=== PATIENT | female | born 1980 | race Caucasian/White ===

== ENCOUNTER 2017-01-28 11:25 | Day surgery (SDC) | payer OTHER, MEDICARE ==
[2017-01-22 10:34] VITALS: BMI 20.4
[~2017-01-28 11:25] MED LIST: CLINDAMYCIN 900 MG in DEXTROSE 5% IN WATER 50 ML IVPB ONE; DEXAMETHASONE SOD PHOSPHATE 10 MG/ML 1 ML VIAL IV ONE; HYDROmorphone 1 MG/ML 1 ML SYRINGE IVP PRN; LACTATED RINGERS 1,000 ML IV SCH; LIDOCAINE 1% 20 ML VIAL (10MG/ML) FOR IV START INTRADERMA PRN; ONDANSETRON 4 MG/2 ML VIAL IVP ONE; SCOPOLAMINE 1.5MG/72HR PATCH TRANSDERM ONE
[2017-01-28 11:50] VITALS: TEMP 97.6
[2017-01-28 12:25] LABS: Glucose,Whole Blood 140 mg/dL (75-99)
[2017-01-28] MEDS ORDERED: SUCCINYLCHOLINE CHLORIDE 100 MG/5 ML SYR IV ONE (13:24)
[2017-01-28] MEDS ORDERED: fentaNYL (PF) 50 MCG/ML 2 ML AMP ONE (13:24)
[2017-01-28] MEDS ORDERED: LIDOCAINE 1% INJ 10MG/ML (20 ML MDV) ONE (13:24)
[2017-01-28] MEDS ORDERED: PROPOFOL 10 MG/ML 20 ML VIAL IV ONE (13:24)
[2017-01-28] MEDS ORDERED: MIDAZOLAM 2 MG/2 ML VIAL ONE (13:24)
[2017-01-28] MEDS ORDERED: LIDOCAINE 1%-EPI 1:100,000 20 ML VIAL SQ ONE ×2 (13:48)
[2017-01-28] MEDS ORDERED: GELATIN SPONGE,ABSORB (SMALL) 1 EACH SPONGE TOPICAL ONE (14:55)
[2017-01-28 16:00] VITALS: RESP 16
[2017-01-28 16:38] LABS: Glucose,Whole Blood 96 mg/dL (75-99)
[2017-01-28 16:44] VITALS: PULSE 89
[2017-01-28 17:11] VITALS: BP 141/90
--- NOTE | 2017-01-29 09:23 | OP ---
DATE OF PROCEDURE: 01/28/2017 PREOPERATIVE DIAGNOSES: 1. Carious teeth. 2. Abscessed teeth. POSTOPERATIVE DIAGNOSES: 1. Carious teeth. 2. Abscessed teeth. PROCEDURE: Surgical extraction of teeth #2, 3, 4, 5, 13, 14, 15, 16, 18, 19, 20 , 21, 22, 26, 27, 28, 29, 30 and 31. SURGEON: CAROLE GAMEZ DDS ANESTHESIA: General via right nasal endotracheal intubation. ESTIMATED BLOOD LOSS: Approximately 100 mL. FLUIDS: Crystalloid. DRAINS: None. COMPLICATIONS: None. SPECIMENS: None. INDICATIONS FOR PROCEDURE: Patient is a 36-year-old female who was referred for the evaluation of severely carious teeth of which she has experienced pain and intermittent swelling. Patient was examined and will undergo removal of multiple carious and abscessed teeth. The risks, benefits and alternatives of the procedure were reviewed with the guardian at length and all of her questions answered to her satisfaction. Patient was taken to the Operating Room, placed on the operating table in the supine position. Next, she was induced via the IV route, was intubated through the right nares. A general mask anesthesia was then maintained throughout the operative course. The patient was then prepped and draped in the usual manner for this procedure. The surgeon approached the operative field and a throat pack was placed and notifying both nursing and anesthesia and 2% Lidocaine with 1/100,000 parts epinephrine was used to provide local infiltration and the right and left inferior nerve block. Next, the surgeon approached the operative field and his attention was directed to the lower right quadrant where teeth #26 through 31 were surgically extracted utilizing elevator and forceps technique. The wound was irrigated thoroughly and 3 chromic gut sutures were placed to reapproximate the flap. Attention was then directed to the 3 other quadrants and using a similar technique, teeth #2, 3, 4, 5, 13, 14, 15, 16, 18, 19, 20, 21, and 22 were extracted. The wounds were irrigated thoroughly and were filled with gel foam prior to closure; 3-0 chromic gut was used. The patient tolerated the procedure well without complications. The throat pack was removed, notifying both nursing and anesthesia. Patient was then taken to the postoperative care unit, breathing spontaneously and hemodynamically stable. [facility]ITAL[facility]honny
== END 2017-01-28 17:13 | disposition home or self-care (01) ==
LOC: OR 11:25
PROVIDERS: ATTEND Dentist Oral and Maxillofacial Surgery
DX: K02.9 Dental caries, unspecified (principal); K04.7 Periapical abscess without sinus; E03.9 Hypothyroidism, unspecified; E78.2 Mixed hyperlipidemia; G47.00 Insomnia, unspecified; E55.9 Vitamin D deficiency, unspecified; Q85.1 Tuberous sclerosis; G40.909 Epilepsy, unspecified, not intractable, without status epilepticus; L21.9 Seborrheic dermatitis, unspecified; E11.65 Type 2 diabetes mellitus with hyperglycemia; R62.50 Unspecified lack of expected normal physiological development in childhood; Z79.4 Long term (current) use of insulin; Z79.899 Other long term (current) drug therapy; Z88.1 Allergy status to other antibiotic agents; Z88.8 Allergy status to other drugs, medicaments and biological substances
CPT/HCPCS: 81025; 84703; 41899; J2250; J2405; J2001; J3010; J0330; J2704

== ENCOUNTER 2020-06-24 13:50 | Emergency (ER) | payer OTHER, MEDICARE ==
[2020-06-24 13:56] VITALS: TEMP 98.8
[2020-06-24] MEDS ORDERED: SODIUM CHLORIDE 0.9% 1,000 ML IV ONE (14:03)
[2020-06-24 14:32] LABS: HCT 40.2 % (34.0-46.0); HGB 13.5 gm/dL (11.4-16.0); MCHC 33.5 g/dL (31.0-37.0); MCV 92.3 fL (80.0-100.0); Mean Platelet Volume 7.5; Platelet Count 292 k/uL (150-450); RBC 4.35 m/uL (3.80-5.40); RDW 13.6 % (11.5-15.5)
[2020-06-24 14:39] LABS: ALT 300 U/L (4-34); AST 231 U/L (14-36); African American GFR (CKD) >90 (>60 ml/min/1.73 sqM); Albumin 3.8 g/dL (3.5-5.0); Alkaline Phosphatase 120 U/L (38-126); Anion Gap 10 mmol/L; Blood Urea Nitrogen 10 mg/dL (7-17); C Reactive Protein 63.3 mg/L (<10.0); Calcium 9.2 mg/dL (8.4-10.2); Carbon Dioxide 26 mmol/L (22-30); Chloride 110 mmol/L (98-107); Glucose 144 mg/dL (74-99); Non-African American GFR(CKD) >90 (>60 ml/min/1.73 sqM); Potassium 4.3 mmol/L (3.5-5.1); Sodium 146 mmol/L (137-145); Total Bilirubin 0.4 mg/dL (0.2-1.3); Total Protein 7.3 g/dL (6.3-8.2)
--- NOTE | 2020-06-24 14:46 | XR ---
EXAMINATION TYPE: XR chest 2V DATE OF EXAM: 06/24/2020 COMPARISON: 01/26/2015 HISTORY: Cough and fever TECHNIQUE: Single view FINDINGS: There is slight elevated right diaphragm.. There are no hilar masses. Heart size is normal. There is some airspace infiltrate in both lower lobes. There is no obvious heart failure. Bony thora x is intact. IMPRESSION: Bilateral lower lobe pulmonary airspace infiltrates and small pleural effusions this appe ars slightly improved compared to old exam. No heart failure.
--- NOTE | 2020-06-24 14:49 | ED ---
General Adult HPI - General Chief complaint: Upper Respiratory Infection Stated complaint: Cough,loss of appetite Time Seen by Provider: 06/24/20 13:56 Source: family, RN notes reviewed Mode of arrival: ambulatory Limitations: no limitations - History of Present Illness Initial comments: 40-year-old female presents emergency Department with mother who is caregiver with chief complaint of possible covid. Mother states that she was positive herself and that there is concerned as she developed symptoms 9 days ago. Patient was placed on antibiotics and steroids. Mom states that her blood sugar has been elevated in the 300s secondary to being on steroids. Mom states that she has decreased oral intake recently that she has not felt well. Mom states that she is nonverbal, developmentally delayed with a history of diabetes. Patient had no vomiting no diarrhea. No reported recent fever. - Related Data Home Medications Medication Instructions Recorded Confirmed Atorvastatin [Lipitor] 80 mg PO 1600 02/23/14 01/28/17 Divalproex [Depakote] 500 mg PO BID 02/23/14 01/28/17 Insulin Glargine [Lantus] 0 unit SQ 2100 02/23/14 01/28/17 levETIRAcetam [Keppra] 1,000 mg PO BID 02/23/14 01/22/17 Calcium Carbonate [Calcium] 600 mg PO DAILY 01/22/17 01/22/17 Cholecalciferol [Vitamin D3] 1,000 unit PO DAILY 01/22/17 01/22/17 Divalproex [Depakote] 250 mg PO QAM 01/22/17 01/22/17 Lacosamide [Vimpat] 100 mg PO BID 01/22/17 01/22/17 Levothyroxine Sodium [Synthroid] 88 mcg PO DAILY 01/22/17 01/28/17 traZODone HCL [Desyrel] 150 mg PO HS 01/22/17 01/28/17 Allergies Allergy/AdvReac Type Severity Reaction Status Date / Time amoxicillin [Amoxicillin] Allergy Severe Swelling, Verified 06/24/20 13:56 hives antihistamines Allergy Severe seizures Uncoded 06/24/20 13:56 Review of Systems ROS Statement: Those systems with pertinent positive or pertinent negative responses have been documented in the HPI. ROS Other: All systems not noted in ROS Statement are negative. Past Medical History Past Medical History: Diabetes Mellitus, Hyperlipidemia, Seizure Disorder, Skin Disorder, Thyroid Disorder Additional Past Medical History / Comment(s): tuberous sclerosis, severe seizure disorder-last one 1 yr ago, non verbal, incontinent of stool and urine (depends), hx kidney stone, psoriasis, History of Any Multi-Drug Resistant Organisms: None Reported Additional Past Surgical History / Comment(s): rt cataract, lithotripsy Past Anesthesia/Blood Transfusion Reactions: No Reported Reaction Past Psychological History: No Psychological Hx Reported Past Alcohol Use History: None Reported Past Drug Use History: None Reported - Past Family History Mother Family Medical History: No Reported History General Exam Limitations: no limitations General appearance: alert, in no apparent distress Head exam: Present: atraumatic, normocephalic, normal inspection Eye exam: Present: normal appearance, PERRL, EOMI. Absent: scleral icterus, conjunctival injection, periorbital swelling ENT exam: Present: normal exam, normal oropharynx, mucous membranes moist Neck exam: Present: normal inspection. Absent: tenderness, meningismus, lymphadenopathy Respiratory exam: Present: normal lung sounds bilaterally. Absent: respiratory distress, wheezes, rales, rhonchi, stridor Cardiovascular Exam: Present: normal rhythm, tachycardia, normal heart sounds. Absent: systolic murmur, diastolic murmur, rubs, gallop, clicks GI/Abdominal exam: Present: soft, normal bowel sounds. Absent: distended, ten derness, guarding, rebound, rigid Course Vital Signs 06/24/20 13:52 Temperature 98.8 F Pulse Rate 101 H Respiratory 22 Rate Blood Pressure 96/58 O2 Sat by Pulse 96 Oximetry Medical Decision Making - Medical Decision Making X-ray reviewed does show evidence of infiltrates, patient has no desaturation. Patient is in no respiratory distress. Patient does have mild labwork abnorm ality's rated to Covid, mild dehydration. Patient was given minimal fluids patient is very stable for discharged. In the room was updated on results and return parameters. Patient feels comfortable with discharge. - Lab Data Result diagrams: 06/24/20 14:15 06/24/20 14:15 Lab Results 06/24/20 06/24/20 06/24/20 Range/Units 14:15 14:15 14:15 WBC 5.8 (3.8-10.6) k/uL RBC 4.35 (3.80-5.40) m/uL Hgb 13.5 (11.4-16.0) gm/dL Hct 40.2 (34.0-46.0) % MCV 92.3 (80.0-100.0) fL MCH 31.0 (25.0-35.0) pg MCHC 33.5 (31.0-37.0) g/dL RDW 13.6 (11.5-15.5) % Plt Count 292 (150-450) k/uL MPV 7.5 Neutrophils % (Manual) 49 % Band Neuts % (Manual) 4 % Lymphocytes % (Manual) 39 % Monocytes % (Manual) 3 % Metamyelocytes % 4 % Myelocytes % 3 % Neutrophils # (Manual) 3.00 (1.3-7.7) k/uL Lymphocytes # (Manual) 2.26 (1.0-4.8) k/uL Monocytes # (Manual) 0.17 (0-1.0) k/uL Metamyelocytes # (Man) 0.23 H (0) k/uL Myelocytes # (Manual) 0.17 H (0) k/uL Nucleated RBCs 1 H (0-0) /100 WBC Manual Slide Review Performed Sodium 146 H (137-145) mmol/L Potassium 4.3 (3.5-5.1) mmol/L Chloride 110 H (98-107) mmol/L Carbon Dioxide 26 (22-30) mmol/L Anion Gap 10 mmol/L BUN 10 (7-17) mg/dL Creatinine 0.40 L (0.52-1.04) mg/dL Est GFR (CKD-EPI)AfAm >90 (>60 ml/min/1.73 sqM) Est GFR (CKD-EPI)NonAf >90 (>60 ml/min/1.73 sqM) Glucose 144 H (74-99) mg/dL Plasma Lactic Acid Law 2.1 H* (0.7-2.0) mmol/L Calcium 9.2 (8.4-10.2) mg/dL Total Bilirubin 0.4 (0.2-1.3) mg/dL AST 231 H (14-36) U/L ALT 300 H (4-34) U/L Alkaline Phosphatase 120 (38-126) U/L C-Reactive Protein 63.3 H (<10.0) mg/L Total Protein 7.3 (6.3-8.2) g/dL Albumin 3.8 (3.5-5.0) g/dL Urine Color Urine Appearance (Clear) Urine pH (5.0-8.0) Ur Specific [place] (1.001-1.035) Urine Protein (Negative) Urine Glucose (UA) (Negative) Urine Ketones (Negative) Urine Blood (Negative) Urine Nitrite (Negative) Urine Bilirubin (Negative) Urine Urobilinogen (<2.0) mg/dL Ur Leukocyte Esterase (Negative) Urine RBC (0-5) /hpf Urine WBC (0-5) /hpf Ur Squamous Epith Cells (0-4) /hpf Urine Mucus (None) /hpf Acetone, Qual Negative (Negative) Coronavirus (PCR) (Not Detectd) 06/24/20 06/24/20 Range/Units 14:15 15:08 WBC (3.8-10.6) k/uL RBC (3.80-5.40) m/uL Hgb (11.4-16.0) gm/dL Hct (34.0-46.0) % MCV (80.0-100.0) fL MCH (25.0-35.0) pg MCHC (31.0-37.0) g/dL RDW (11.5-15.5) % Plt Count (150-450) k/uL MPV Neutrophils % (Manual) % Band Neuts % (Manual) % Lymphocytes % (Manual) % Monocytes % (Manual) % Metamyelocytes % % Myelocytes % % Neutrophils # (Manual) (1.3-7.7) k/uL Lymphocytes # (Manual) (1.0-4.8) k/uL Monocytes # (Manual) (0-1.0) k/uL Metamyelocytes # (Man) (0) k/uL Myelocytes # (Manual) (0) k/uL Nucleated RBCs (0-0) /100 WBC Manual Slide Review Sodium (137-145) mmol/L Potassium (3.5-5.1) mmol/L Chloride (98-107) mmol/L Carbon Dioxide (22-30) mmol/L Anion Gap mmol/L BUN (7-17) mg/dL Creatinine (0.52-1.04) mg/dL Est GFR (CKD-EPI)AfAm (>60 ml/min/1.73 sqM) Est GFR (CKD-EPI)NonAf (>60 ml/min/1.73 sqM) Glucose (74-99) mg/dL Plasma Lactic Acid Law (0.7-2.0) mmol/L Calcium (8.4-10.2) mg/dL Total Bilirubin (0.2-1.3) mg/dL AST (14-36) U/L ALT (4-34) U/L Alkaline Phosphatase (38-126) U/L C-Reactive Protein (<10.0) mg/L Total Protein (6.3-8.2) g/dL Albumin (3.5-5.0) g/dL Urine Color Yellow Urine Appearance Clear (Clear) Urine pH 6.0 (5.0-8.0) Ur Specific [place] 1.027 (1.001-1.035) Urine Protein Trace H (Negative) Urine Glucose (UA) 3+ H (Negative) Urine Ketones Trace H (Negative) Urine Blood Negative (Negative) Urine Nitrite Negative (Negative) Urine Bilirubin Negative (Negative) Urine Urobilinogen 3.0 (<2.0) mg/dL Ur Leukocyte Esterase Small H (Negative) Urine RBC 1 (0-5) /hpf Urine WBC 4 (0-5) /hpf Ur Squamous Epith Cells 2 (0-4) /hpf Urine Mucus Many H (None) /hpf Acetone, Qual (Negative) Coronavirus (PCR) Detected A (Not Detectd) Disposition Clinical Impression: COVID-19 Disposition: HOME SELF-CARE Condition: Stable Instructions (If sedation given, give patient instructions): Upper Respiratory Infection (ED) Additional Instructions: Please return to the Emergency Department if symptoms worsen or any other concerns. Is patient prescribed a controlled substance at d/c from ED?: No Referrals: Iron Pop DO [Primary Care Provider] - 1-2 days Time of Disposition: 15:58
[2020-06-24 15:01] LABS: Band Neutrophils % 4 %; Metamyelocytes % 4 %; Myelocytes % 3 %; Neutrophils % (M) 49 %; Nucleated Red Blood Cells 1 /100 WBC (0-0); Total Cells Counted 200
[2020-06-24 15:02] LABS: Lymphocytes # (M) 2.26 k/uL (1.0-4.8); Metamyelocytes # (M) 0.23 k/uL (0); Monocytes # (M) 0.17 k/uL (0-1.0); Myelocytes # (M) 0.17 k/uL (0); WBC 5.8 k/uL (3.8-10.6)
[2020-06-24 15:15] LABS: Appearance,Urine Clear (Clear); Bilirubin,Urine Negative (Negative); Blood,Urine Negative (Negative); Color,Urine Yellow; Glucose,Urine (UA) 3+ (Negative); Ketones,Urine Trace (Negative); Leukocyte Esterase,Urine Small (Negative); Mucus,Urine Many /hpf; Nitrite,Urine Negative (Negative); Protein,Urine Trace (Negative); RBC,Urine 1 /hpf (0-5); Specific Gravity,Urine 1.027 (1.001-1.035); Squamous Epithelial Cell,Urine 2 /hpf (0-4); WBC,Urine 4 /hpf (0-5)
[2020-06-24 16:24] VITALS: BP 96/62; PULSE 96; RESP 18
== END 2020-06-24 16:24 | disposition home or self-care (01) ==
LOC: EC 13:50 → EEVIPCON 13:50 → EC 16:24
DX: U07.1 COVID-19 (principal); R91.8 Other nonspecific abnormal finding of lung field; E86.0 Dehydration; E11.9 Type 2 diabetes mellitus without complications; E78.5 Hyperlipidemia, unspecified; G40.909 Epilepsy, unspecified, not intractable, without status epilepticus; Z79.890 Hormone replacement therapy; Z79.4 Long term (current) use of insulin; Z79.899 Other long term (current) drug therapy; Z88.0 Allergy status to penicillin; Z88.8 Allergy status to other drugs, medicaments and biological substances
CPT/HCPCS: 36415; 71046; 80053; 81001; 82009; 83605; 85025; 86140; 87635; 96360; 96361; 99283

== ENCOUNTER → 2025-01-13 | Outpatient (CLI) | payer MEDICARE ==
--- NOTE | 2025-01-13 10:05 | XR ---
EXAMINATION TYPE: XR abdomen 1V DATE OF EXAM: 01/13/2025 COMPARISON: Abdominal radiograph 03/03/2014 HISTORY: Abdominal pain with diarrhea TECHNIQUE: Single supine view of the abdomen is obtained FINDINGS: Small bowel demonstrates no evidence for dilatation or air fluid levels. Gas and fecal material is seen in non-distended colon. No convincing evidence for pneumoperitoneum. No unusual calcifications. The lung bases are clear. The osseous structures are intact. IMPRESSION: Overall nonobstructive bowel gas pattern. [facility], , 01/13/2025 10:02 AM
== END | disposition home or self-care (01) ==
LOC: RADXRYALE 09:38
PROVIDERS: ATTEND Family Medicine
DX: R10.817 Generalized abdominal tenderness (principal); R14.0 Abdominal distension (gaseous)
CPT/HCPCS: 74018